=== PATIENT | male | born 1945 | race Caucasian/White ===

== ENCOUNTER → 2016-11-21 | Outpatient (CLI) | payer OTHER ==
[~2016-11-21] MED LIST: ASPI-461 PO; CETI10TA10 PO; LOSA1TAB38 PO; METF500T PO; MULTTAB58 PO; NXM/40 PO; OMEG1CAP71 PO; SIMV20TA5 PO
[2016-11-21 11:12] LABS: ESTIMATED AVERAGE GLUCOSE 163 mg/dl; HA1C FLAG Normal (Normal)
[2016-11-21 14:13] LABS: CALCIUM 9.6 mg/dl (8.5-10.1)
[2016-11-21 14:18] LABS: BLOOD UREA NITROGEN 20 mg/dl (7-18); GLUCOSE 135 mg/dl (70-99)
[2016-11-21 14:19] LABS: BUN/CREATININE RATIO 16.7 (10-20); CARBON DIOXIDE 30 mmol/L (21-32); CHLORIDE 106 mmol/L (98-107); POTASSIUM 4.7 mmol/L (3.5-5.1); SODIUM 140 mmol/L (136-145)
[2016-11-21 14:48] LABS: LYME DISEASE AB IGG NEG (NEG)
[2016-11-21 15:03] LABS: LYME DISEASE AB IGM NEG (NEG)
--- NOTE | 2016-12-04 13:39 | CODING QUERY MEDICAL NECESSITY ---
SUPPORTING DIAGNOSIS NEEDED Dr. Lyons, A supporting diagnosis is required for the test/procedure performed on this patient in order for us to be reimbursed by the patient's insurance. Please provide a supporting diagnosis for the following test/procedure listed below next to the test name along with your signature. *If there is no additional diagnosis for this patient that would support the following test/procedure please document that below next to the test/procedure. Test(s)/Procedure(s) that require a supporting diagnosis: * [id number] PSA DIAGNOSIS: DATE OF SERVICE: 11/21/16 Provider Signature: Date: Thank you Williams Monzon [facility] Information Management Once completed, please kindly fax back to [phone] For questions please call [phone]
== END | disposition home or self-care (01) ==
LOC: C.LABBC 09:06
PROVIDERS: ATTEND Internal Medicine Geriatric Medicine
DX: Z00.00 Encounter for general adult medical examination without abnormal findings (principal); E11.9 Type 2 diabetes mellitus without complications; G62.9 Polyneuropathy, unspecified; I10 Essential (primary) hypertension; G47.33 Obstructive sleep apnea (adult) (pediatric); T14.8 Other injury of unspecified body region; W57.XXXA Bitten or stung by nonvenomous insect and other nonvenomous arthropods, initial encounter; Z12.5 Encounter for screening for malignant neoplasm of prostate

== ENCOUNTER → 2017-04-30 | Outpatient (CLI) | payer OTHER ==
[~2017-04-30] MED LIST changes: +DOXY-300 PO; +LPT/20 PO; +METF1TAB53 PO; -METF500T PO; -SIMV20TA5 PO
[2017-04-30 13:46] LABS: CREATININE, URINE 70.2 mg/dl; URINE PROTIEN/CREAT RATIO 0.1 (0-0.2); URINE TOTAL PROTEIN 8.8 mg/dl (0-11.9)
[2017-04-30 13:48] LABS: BASO % 0.4 %; BASO ABS # 0.02 K/uL (0-0.2); COMPLETE YES; EOS % 1.4 %; HEMATOCRIT 42.1 % (42-52); IG% 0.2 %; LYMPH % 23.4 %; LYMPH ABS # 1.33 K/uL (1.2-3.4); MEAN CELL VOLUME 90.3 fL (80-100); MEAN CORPUSCULAR HEMOGLOBIN 30.7 pg (25-34); MEAN PLATELET VOLUME 9.5 fL (7.4-10.4); MONO % 8.1 %; NEUT % 66.5 %; PLATELET COUNT 206 K/uL (130-400); RED BLOOD COUNT 4.66 M/uL (4.7-6.1); WHITE BLOOD COUNT 5.69 K/uL (4.8-10.8)
[2017-04-30 14:00] LABS: ESTIMATED AVERAGE GLUCOSE 140 mg/dl; HA1C FLAG Normal (Normal)
[2017-04-30 14:04] LABS: ALT/SGPT 26 U/L (12-78); AST/SGOT 14 U/L (15-37); BLOOD UREA NITROGEN 18 mg/dl (7-18); CARBON DIOXIDE 31 mmol/L (21-32); CHLORIDE 103 mmol/L (98-107); CHOLESTEROL 125 mg/dl (0-200); CREATININE 1.21 mg/dl (0.60-1.40); GLUCOSE 129 mg/dl (70-99); POTASSIUM 4.1 mmol/L (3.5-5.1); SODIUM 137 mmol/L (136-145)
[2017-04-30 14:15] LABS: ALB/GLOB RATIO 1.1 (0.9-2); ALKALINE PHOSPHATASE 72 U/L (45-117); CHOLESTEROL/HDL RATIO 2.5; HDL CHOLESTEROL 51 mg/dl; LDL CHOLESTEROL CALCULATED 54 mg/dl; TRIGLYCERIDES 99 mg/dl (0-150); VERY LOW DENSITY LIPOPROT CALC 20 mg/dl
== END | disposition home or self-care (01) ==
LOC: C.LABBC 12:01
PROVIDERS: ATTEND Internal Medicine Geriatric Medicine
DX: I10 Essential (primary) hypertension (principal); G47.33 Obstructive sleep apnea (adult) (pediatric); E78.5 Hyperlipidemia, unspecified; Z68.38 Body mass index [BMI] 38.0-38.9, adult; G62.9 Polyneuropathy, unspecified; R80.9 Proteinuria, unspecified

== ENCOUNTER → 2017-08-22 | Outpatient (CLI) | payer OTHER ==
[~2017-08-22] MED LIST changes: -LPT/20 PO; +LPT20 PO
== END | disposition home or self-care (01) ==
LOC: C.PATHSPEC 18:03
PROVIDERS: ATTEND Plastic Surgery
DX: L72.0 Epidermal cyst (principal)

== ENCOUNTER 2020-05-07 17:21 | Observation (INO) ==
--- NOTE | 2020-05-07 18:06 | Emergency Department Note ---
Impression & Plan COVID-19 virus infection, SOB (shortness of breath), Fever, Hypoxia ED Provider Note INFORMANT: Patient ED PROVIDER(S): True Friedman MD CHIEF COMPLAINT: Shortness of breath PLAN: Disposition: Admitted Condition: Good MEDICAL DECISION MAKING: Patient presented with concerns for Covid infection. His test was pending from the [facility]. He had borderline O2 saturations during his physical of 90 to 91%. He had increased work of breathing. He does have multiple health issues. An ECG was performed and showed a sinus rhythm at 76 bpm. No ischemia. His CBC showed a mild decrease in his white blood cell count. He did have a positive D-dimer. His chemistry and troponin were negative. Patient underwent CT imaging and he has a bilateral pneumonia/pneumonitis. He was given IV Decadron. [facility] He did ask for a confirmation Covid test to be performed to help guide his inpatient treatment. This was done and was positive. The patient will benefit from inpatient treatment. During the subsequent evaluation by the hospitalist the patient's O2 saturation was noted to drop to 89%. Triage Nursing notes reviewed and agree them. Vital Signs: reviewed and remarkable for no significant abnormalities Differential diagnosis: COVID-19 infection, reactive airway disease, pneumonia, pneumothorax, COPD, CHF, infections, cardiac ischemia, pulmonary embolism, musculoskeletal, gastrointestinal, as well as other pathologies. Diagnostics interpreted by me: ECG: Sinus rhythm with a first-degree block at [address] elevation or depression. No PACs or PVCs. Normal axis and QRS. Cardiac Monitoring: Cardiac monitoring ordered by me: The patient was placed on continuous cardiac monitoring and observed. It revealed a normal sinus rhythm at 70 beats per minute without ectopy or evidence of dysrhythmia. Imaging studies: CT scan of the chest revealed no thromboembolic disease. Bilateral scattered patchy areas of inflammation concerning for a pneumonitis/multifocal pneumonia. Consultation(s): [facility] HPI: The patient is a 74 year old male who presents to the Emergency Room with complaints of shortness of breath. This started last week and is in progressing. Patient states he was tested for Covid but does not have the results back yet. He does not have any known exposures. The patient also notes the following associated symptoms, fever, fatigue, low energy, cough. The patient has found no relieving factors. Current pain is rated as 0/10. pt denies LOC, headache, chills, diaphoresis, visual changes, neck pain, chest pain, nausea, vomiting, abdominal pain, back pain, melena, hematochezia, urinary symptoms, numbness, weakness, lymphadenopathy, rash, or other complaints. ROS: See above HPI for pertinent positives & negatives. A total of 10 systems reviewed and were otherwise negative. PAST MEDICAL HISTORY:See Below, hypertension, diabetes PAST SURGICAL HISTORY:See Below, FAMILY HISTORY:See Below SOCIAL HISTORY:See Below, non-smoker HOME MEDICATIONS:See Below ALLERGIES:See Below VITALS:See Below PHYSICAL EXAMINATION: GENERAL: Awake, alert, mildly dyspneic-appearing, in no distress HENT: Normocephalic, atraumatic. Oropharynx unremarkable. EYES: Normal conjunctiva. Sclera non-icteric. NECK: Inspection normal. Non-tender. Supple. No nuchal rigidity. FROM. No masses. RESPIRATORY: Clear to auscultation. No wheezes. No rales. Increased respiratory effort. CARDIAC: Normal rate. Normal rhythm. No murmurs. No rubs. Extremities warm and well perfused. Pulses equal. No JVD. GI: Soft, non-distended. No tenderness to palpation. No rebound or guarding. No masses. RECTAL: Deferred. MUSCULOSKELETAL: Atraumatic. Chest examination reveals no tenderness. The back is symmetrical on inspection without obvious abnormality. There is no CVA tenderness to palpation. No joint edema. LOWER EXTREMITIES: Calves are equal size bilaterally and non-tender. No edema. No discoloration. NEURO: Normal sensorium. No sensory or motor deficits noted. SKIN: No rash or jaundice noted. True Friedman MD Past Med/Surg History Medical History (Updated 05/07/20 @ 22:30 by True Friedman MD) Anemia pt denies. Barretts esophagus Diabetes mellitus, type 2 NIDDM Dyslipidemia Esophageal candidiasis hx - no problems currently GERD (gastroesophageal reflux disease) Hyperlipidemia Hypertension Numbness left hip, front and back (from a sledding accident as a child) Obstructive sleep apnea CPAP Osteoarthritis Peripheral neuropathy bilateral feet Sleep apnea cpap Tubular adenoma of colon Surgical History H/O removal of cyst sebaceous cyst History of colonoscopy 2004- 2 polyp removed. 2014- polyps (benign) removed. History of esophagogastroduodenoscopy (EGD) History of surgery removal of benign testicular growth History of tooth extraction Family History Mother , from cancer Family history of diabetes mellitus Family member Father , at age 79 Family history of diabetes mellitus Heart disease Cardiac disorder Family member Family/Other Family history of diabetes mellitus cousins Zhu esophagus Skin cancer (melanoma) Renal cell carcinoma Uncle Family hx of colon cancer Cancer Colon cancer Grandmother (Maternal) Glaucoma Aunt Cancer Grandfather (Paternal) Myocardial infarction Brother Prostate cancer Other No family history of adverse response to anesthesia Denies family history of Ovarian cancer Breast cancer Social History Smoking Status: Never smoker Second Hand Exposure: No; Hx Alcohol Use: Yes Alcohol type: wine Hx Substance Use: No Preferred Language: Polish Communication Ability: Effective Visual Impairment: No Limitations Hearing Ability: Normal Brilliandeer Looper Required: No Beliefs That Will Affect Care: None marital status: Current Living Situation: Spouse current occupational status: retired Feels Safe at Home: Yes Childhood Exposure to Second-Hand Smoke: No Dental Care, Regularly: Yes Physical Activity Frequency: 3-4 Times per Week Seatbelt Use: always Sunscreen Use: Yes Assistive Devices: CPAP, Denture - Upper, Denture - Lower and Glasses Allergies Allergies Allergy/AdvReac Type Severity Reaction Status Date / Time No Known Allergies Allergy Verified 05/07/20 20:57 Home Meds Home Medications Medication Instructions Recorded Confirmed aspirin 81 mg PO Q2D 06/30/18 05/07/20 cetirizine [Zyrtec] 10 mg PO DAILY PRN 06/30/18 05/07/20 cholecalciferol (vitamin D3) 1,000 unit PO QAM 06/30/18 05/07/20 [Vitamin D3] cyanocobalamin (vitamin B-12) 1,000 mcg PO QAM 06/30/18 05/07/20 [Vitamin B-12] multivitamin 1 tab PO QAM 06/30/18 05/07/20 pseudoephedrine HCl [Sudafed] 30 mg PO Q6H PRN 06/30/18 05/07/20 atorvastatin 20 mg PO QPM 02/02/20 05/07/20 fish,bora,flax oils-om3,6,9no1 2 cap PO QAM 02/02/20 05/07/20 [[place] 3-6-9 Complex] Previous Rx's Medication Instructions Recorded losartan 100 mg tablet 100 mg PO QAM #90 tab 07/20/19 metformin 500 mg tablet,extended 1,000 mg PO BID #360 tab 08/19/19 release 24 hr esomeprazole magnesium 40 mg 40 mg PO QAM #90 cap 11/16/19 capsule,delayed release doxazosin 2 mg tablet 2 mg PO QAM #90 tab 03/25/20 Results & Data (ED) Vital Signs Vital Signs - 24 hr 05/07/20 17:23 05/07/20 19:30 05/07/20 20:30 Temperature 37.3 C Temperature Source Temporal Artery Scan Pulse Rate 78 70 Pulse Rate from SpO2 Sensor 70 Respiratory Rate 19 22 Respiratory Effort / Characteristics Non-Labored Respiratory Depth Normal Blood Pressure 148/84 H 159/85 H Blood Pressure Mean 105 117 Blood Pressure Position Sitting Pulse Oximetry 92 93 89 L Oxygen Delivery Method Room Air Room Air Sepsis Recent Fever Within 48 Hours Yes Sepsis New/Unexplained Change in Mental Status No Sepsis Action Taken by Nursing No Action Required Laboratory Data Result diagrams: 05/07/20 18:00 05/07/20 18:00 Lab Results 05/07/20 05/07/20 05/07/20 Range/Units 18:00 18:00 18:00 WBC 4.25 L (4.8-10.8) K/uL RBC 4.25 L (4.7-6.1) M/uL Hgb 12.7 L (14.0-18.0) g/dL Hct 36.7 L (42-52) % MCV 86.4 (80-100) fL MCH 29.9 (25-34) pg MCHC 34.6 (32-36) g/dL RDW Std Deviation 41.6 (36.4-46.3) fL RDW Coeff of Chandler 13.1 (11.5-14.5) % Plt Count 163 (130-400) K/uL MPV 9.5 (7.4-10.4) fL Immature Gran % (Auto) 0.2 % Neut % (Auto) 79.9 % Lymph % (Auto) 14.1 % Cross % (Auto) 5.4 % Eos % (Auto) 0.2 % Baso % (Auto) 0.2 % Neut # (Auto) 3.39 (1.4-6.5) K/uL Lymph # (Auto) 0.60 L (1.2-3.4) K/uL Cross # (Auto) 0.23 (0.11-0.59) K/uL Eos # (Auto) 0.01 (0-0.5) K/uL Baso # (Auto) 0.01 (0-0.2) K/uL Immature Gran # (Auto) 0.01 (0.00-0.02) K/uL PT 11.6 (9.0-12.0) Seconds INR 1.1 (0.9-1.1) D-Dimer 540 H* (0-500) ug/L FEU Sodium 131 L (136-145) mmol/L Potassium 3.7 (3.5-5.1) mmol/L Chloride 99 (98-107) mmol/L Carbon Dioxide 27 (21-32) mmol/L Anion Gap 5.0 (3-11) BUN 20 H (7-18) mg/dl Creatinine 0.99 (0.6-1.4) mg/dl Est Cr Clr Drug Dosing 86.5 ml/min Est GFR ( Amer) 87.8 Est GFR (Non-Af Amer) 75.8 BUN/Creatinine Ratio 20.0 (10-20) Glucose 135 H (70-99) mg/dl Calcium 8.1 L (8.5-10.1) mg/dl Total Bilirubin 0.7 (0.2-1) mg/dl AST 20 (15-37) U/L ALT 21 (12-78) U/L Alkaline Phosphatase 71 (45-117) U/L Troponin I < 0.015 (0-0.045) ng/ml Total Protein 7.0 (6.4-8.2) gm/dl Albumin 3.3 L (3.4-5.0) gm/dl Globulin 3.7 (2.5-4.0) gm/dl Albumin/Globulin Ratio 0.9 (0.9-2) COVID-19 Eval Order SARS-CoV-2, RNA, NAAT (NEGATIVE) Blood Type Antibody Screen 05/07/20 05/07/20 05/07/20 Range/Units 18:22 20:37 20:37 WBC (4.8-10.8) K/uL RBC (4.7-6.1) M/uL Hgb (14.0-18.0) g/dL Hct (42-52) % MCV (80-100) fL MCH (25-34) pg MCHC (32-36) g/dL RDW Std Deviation (36.4-46.3) fL RDW Coeff of Chandler (11.5-14.5) % Plt Count (130-400) K/uL MPV (7.4-10.4) fL Immature Gran % (Auto) % Neut % (Auto) % Lymph % (Auto) % Cross % (Auto) % Eos % (Auto) % Baso % (Auto) % Neut # (Auto) (1.4-6.5) K/uL Lymph # (Auto) (1.2-3.4) K/uL Cross # (Auto) (0.11-0.59) K/uL Eos # (Auto) (0-0.5) K/uL Baso # (Auto) (0-0.2) K/uL Immature Gran # (Auto) (0.00-0.02) K/uL PT (9.0-12.0) Seconds INR (0.9-1.1) D-Dimer (0-500) ug/L FEU Sodium (136-145) mmol/L Potassium (3.5-5.1) mmol/L Chloride (98-107) mmol/L Carbon Dioxide (21-32) mmol/L Anion Gap (3-11) BUN (7-18) mg/dl Creatinine (0.6-1.4) mg/dl Est Cr Clr Drug Dosing ml/min Est GFR ( Amer) Est GFR (Non-Af Amer) BUN/Creatinine Ratio (10-20) Glucose (70-99) mg/dl Calcium (8.5-10.1) mg/dl Total Bilirubin (0.2-1) mg/dl AST (15-37) U/L ALT (12-78) U/L Alkaline Phosphatase (45-117) U/L Troponin I (0-0.045) ng/ml Total Protein (6.4-8.2) gm/dl Albumin (3.4-5.0) gm/dl Globulin (2.5-4.0) gm/dl Albumin/Globulin Ratio (0.9-2) COVID-19 Eval Order Covid19 [facility]Now [facility] SARS-CoV-2, RNA, NAAT POSITIVE A* (NEGATIVE) Blood Type A Negative Antibody Screen NEGATIVE Administered Medications Discontinued Medications Dexamethasone (Dexamethasone Sod Inj 10 Mg/Ml Vial) 6 mg IV NOW ONE Stop: 05/07/20 20:12 Last Admin: 05/07/20 20:35 Dose: 6 mg Documented by: [id number] Ioversol (Optiray 320 125ml) 118 ml IV ONCE ONE Stop: 05/07/20 19:25 Last Admin: 05/07/20 19:24 Dose: 118 ml Documented by: [id number] Discharge Plan Visit Data Chief Complaint: Fever Stated Complaint: FEVER, COUGH ED Provider: True Friedman Discharge Problem: COVID-19 virus infection, SOB (shortness of breath), Fever, Hypoxia Forms Stand Alone Forms: [facility] Prescriptions Prescriptions: No Action metformin [Glucophage XR] 500 mg tablet extended release 24 hr 1,000 mg PO BID Qty: 360 RF: 3 esomeprazole magnesium 40 mg capsule,delayed release(DR/EC) 40 mg PO QAM Qty: 90 RF: 3 doxazosin 2 mg tablet 2 mg PO QAM Qty: 90 RF: 1 losartan 100 mg tablet 100 mg PO QAM Qty: 90 RF: 3 multivitamin Tablet 1 tab PO QAM RF: 0 cetirizine [Zyrtec] 10 mg Tablet 10 mg PO DAILY PRN (Reason: Allergy Symptoms) RF: 0 cyanocobalamin (vitamin B-12) [Vitamin B-12] 1,000 mcg Tablet 1,000 mcg PO QAM RF: 0 aspirin 81 mg Tablet,Delayed Release (Dr/Ec) 81 mg PO Q2D RF: 0 pseudoephedrine HCl [Sudafed] 30 mg Tablet 30 mg PO Q6H PRN (Reason: Cold Symptoms) RF: 0 cholecalciferol (vitamin D3) [Vitamin D3] 1,000 unit Capsule 1,000 unit PO QAM RF: 0 fish,bora,flax oils-om3,6,9no1 [[place] 3-6-9 Complex] 400-400-400 mg Capsule 2 cap PO QAM RF: 0 atorvastatin 20 mg tablet 20 mg PO QPM RF: 0
[2020-05-07 18:36] LABS: Basophils # (auto) 0.01 K/uL (0-0.2); Basophils % (auto) 0.2 %; Eosinophils # (auto) 0.01 K/uL (0-0.5); Eosinophils % (auto) 0.2 %; Hematocrit (blood only) 36.7 % (42-52); Hemoglobin 12.7 g/dL (14.0-18.0); Immature Granulocytes # (auto) 0.01 K/uL (0.00-0.02); Immature Granulocytes % (auto) 0.2 %; Lymphocytes % (auto) 14.1 %; Mean Corpuscular Hemoglobin 29.9 pg (25-34); Mean Corpuscular Hgb Conc 34.6 g/dL (32-36); Mean Corpuscular Volume 86.4 fL (80-100); Mean Platelet Volume 9.5 fL (7.4-10.4); Monocytes # (auto) 0.23 K/uL (0.11-0.59); Monocytes % (auto) 5.4 %; Neutrophils # (auto) 3.39 K/uL (1.4-6.5); Neutrophils % (auto) 79.9 %; Platelet Count 163 K/uL (130-400); RDW Coefficient of Variation 13.1 % (11.5-14.5); RDW Standard Deviation 41.6 fL (36.4-46.3); Red Blood Count 4.25 M/uL (4.7-6.1); White Blood Count 4.25 K/uL (4.8-10.8)
[2020-05-07 18:46] LABS: INR 1.1 (0.9-1.1); Prothrombin Time 11.6 Seconds (9.0-12.0)
[2020-05-07 18:53] LABS: D Dimer 540 ug/L FEU (0-500)
[2020-05-07 18:55] LABS: Alanine Aminotransferase 21 U/L (12-78); Albumin Level 3.3 gm/dl (3.4-5.0); Aspartate Aminotransferase 20 U/L (15-37); Blood Urea Nitrogen 20 mg/dl (7-18); Calcium 8.1 mg/dl (8.5-10.1); Carbon Dioxide 27 mmol/L (21-32); Chloride 99 mmol/L (98-107); Creatinine Clr Calc Pharmacy 86.5 ml/min; Est GFR (African American) 87.8; Est GFR (Non-African American) 75.8; Glucose 135 mg/dl (70-99); Potassium 3.7 mmol/L (3.5-5.1); Sodium 131 mmol/L (136-145)
[2020-05-07 19:00] LABS: Albumin Globulin Ratio 0.9 (0.9-2); Alkaline Phosphatase 71 U/L (45-117); Bilirubin,Total 0.7 mg/dl (0.2-1); Globulin 3.7 gm/dl (2.5-4.0); Troponin I < 0.015 ng/ml (0-0.045)
[2020-05-07] MEDS ORDERED: OPTIRAY 320 125ml IV ONE (19:24)
--- NOTE | 2020-05-07 19:36 | CT Scan Report ---
CT ANGIOGRAM OF THE CHEST CLINICAL HISTORY: Fever. Dyspnea. Cough. COMPARISON STUDY: No priors. TECHNIQUE: Following the IV administration of 118 cc of Optiray 320, CT angiogram of the chest was pe rformed from the upper abdomen to the thoracic inlet utilizing the pulmonary embolus protocol. Images are reviewed in the axial, sagittal, and coronal planes. 3-D MIPS images are created and assessed. I V contrast was administered without complication. A dose lowering technique was utilized adhering to the principles of ALARA. CT DOSE: 792.14 mGy.cm FINDINGS: Thyroid: Imaged portions of the thyroid gland are normal in size and attenuation. Thoracic aorta: The thoracic aorta is normal in caliber and demonstrates standard 3-vessel arch anato my. No dissection is seen. Pulmonary vasculature: The pulmonary trunk is normal in caliber. There are no filling defects within the main, lobar, or segmental pulmonary arteries to suggest pulmonary embolus. Heart: The heart is enlarged and without pericardial effusion. There are coronary artery calcificatio ns. Lungs and pleural spaces: Evaluation of the lung parenchyma is degraded by motion artifact. There is mild multifocal groundglass consolidation seen throughout both lungs with a predominant a subpleural distribution. No pleural effusion is seen. The trachea and central airways are clear. A 5 mm right lo wer lobe pulmonary nodule is seen on image #122. A 2 mm right upper lobe pulmonary nodule is seen on image #161. Mediastinum: There are scattered subcentimeter mediastinal lymph nodes. Bridget: Clear. Axillae: There is no axillary lymphadenopathy. Upper abdomen: There is a small hiatal hernia. Partially visualized upper abdominal viscera is otherw ise within normal limits. Skeletal structures: The skeletal structures are osteopenic. No lytic or blastic bony lesions are see n. Soft tissues: A 12 mm sebaceous cyst is seen within the left anterior chest wall on image #206. IMPRESSION: 1. There is no evidence of pulmonary embolus in the main, lobar, or segmental pulmonary arteries. 2. There is mild multifocal groundglass consolidation seen throughout both lungs, consistent with an infectious/inflammatory pneumonitis. Clinical correlation will be required and radiographic follow-up to resolution is recommended. 3. Cardiomegaly. 4. There are least 2 pulmonary nodules which measure up to 5 mm. These are pathologically indetermina nt and follow-up is recommended as per the Fleischner criteria below. Please refer to below summary of Fleischner criteria recommendations for follow-up of incidental CT n odules (Jessica Martinez, Guidelines for management of small pulmonary nodules detected on CT scans: A elvin tamayo from the Fleischner Society, Radiology 237: [phone].) SOLID NODULES Solitary nodule size: <6 mm * low risk patients: no follow-up needed * high risk patients: optional CT at 12 months Solitary nodule size: 6-8 mm * low risk patients: follow-up at 6-12 months, then consider further follow-up at 18-24 months * high risk patients: initial follow-up CT at 6-12 months and then at 18-24 months if no change Solitary nodule size: >8 mm * either low or high risk patients - consider follow-up CT at 3 months, and/or CT-PET, and/or biopsy Multiple nodules size: <6 mm * low risk patients: no routine follow-up * high risk patients: optional CT at 12 months Multiple nodules size: 6-8 mm * low risk patients: follow-up at 3-6 months, then consider further follow-up at 18-24 months * high risk patients: follow-up at 3-6 months, then at 18-24 months if no change Multiple nodules size: >8 mm * low risk patients: follow-up at 3-6 months, then consider further follow-up at 18-24 months * high risk patients: follow-up at 3-6 months, then at 18-24 months if no change Note: newly detected indeterminate nodule in persons 35 years of age or older. * low risk patients: minimal or absent history of smoking and/or other known risk factors * high risk patients: history of smoking or of other known risk factors (e.g. first degree relative with lung cancer, or exposure to asbestos, radon, uranium) * if a nodule up to 8 mm is partly solid or is ground glass further follow-up is required after 24 m onths to exclude possible slow growing adenocarcinoma (CRISTINA) SUBSOLID NODULES Solitary pure ground-glass nodule * nodule size <6 mm - no CT follow-up required * nodule size >=6 mm - follow-up CT at 6-12 months, then every 2 years until 5 years Solitary part-solid nodule * nodule size <6 mm - no CT follow-up required * nodule size >=6 mm - follow-up CT at 3-6 months. If unchanged, and solid component remains <6 mm, then annual follow-up for 5 years Multiple subsolid nodules * nodule size <6 mm - follow-up CT at 3-6 months, consider further follow-up at 2 and 4 years if sta ble * nodule size >=6 mm - follow-up CT at 3-6 months, subsequent management based on the most suspiciou s nodule(s) ACT 112: Negative or not required by law. Electronically signed by: Michael Shah M.D. 05/07/2020 7:34 PM
[2020-05-07] MEDS ORDERED: DEXAMETHASONE SOD INJ 10 MG/ML VIAL IV ONE (20:11)
--- NOTE | 2020-05-07 22:43 | History & Physical Report ---
Date of Service May 07, 2020 Assessment & Plan (1) COVID-19 virus infection: COVID-19 virus infection with hypoxia- Dexamethasone 6 mg IV every morning Remdesivir IV per protocol Azithromycin 5 mg IV daily Zinc sulfate turn 20 mg p.o. daily Ventolin HFA 2 puffs 4 times daily, and every 2 hours as needed Lovenox subcu Present on Admission?: Yes (2) Hypoxia: See above Present on Admission?: Yes (3) Vitamin B12 deficiency: Continue supplement 1000 mcg every morning Present on Admission?: Yes (4) Gastroesophageal reflux disease: GERD/Zhu's esophagus- Change Nexium to pantoprazole per formulary interchange Present on Admission?: Yes (5) Zhu's esophagus: See above Present on Admission?: Yes (6) Hypertension: Continue aspirin, doxazosin and losartan. Present on Admission?: Yes (7) Type 2 diabetes mellitus: Hold metformin. Placed on Accu-Cheks before meals and at bedtime with NovoLog coverage per scale Present on Admission?: Yes (8) Dyslipidemia: Continue atorvastatin 20 mg daily Present on Admission?: Yes (9) Obstructive sleep apnea: CPAP at bedtime as needed Present on Admission?: Yes (10) Peripheral neuropathy: History of Present Illness Chief Complaint: The patient presented to the emergency department with complaint of increased difficulty with breathing over the past few days, with a pending COVID-19 testing in the outpatient setting Primary Care Provider: Dennis Frausto MD The patient is a 74-year-old male with a past medical history including colon polyps, Zhu's esophagus, vitamin B12 deficiency, seborrheic keratosis, multiple benign nevi, hypertension, GERD, diabetes mellitus type 2, dermatofibroma, powell angioma, anemia, dyslipidemia, esophageal candidiasis, obstructive sleep apnea, peripheral neuropathy and tubular adenoma of colon. Patient presents with symptoms as noted above. Work-up in the emergency department included the following abnormal laboratories: Sodium 131, glucose 135, albumin 3.3, hemoglobin 12.7, D-dimer 540 Patient vitals included a room air oxygen saturation of 89% CT angiography PE protocol was negative for PE. Did show bilateral interstitial pneumonitis pattern. COVID-19 virus testing was positive. Allergies Allergy/AdvReac Type Severity Reaction Status Date / Time No Known Allergies Allergy Verified 05/07/20 20:57 Home Medications Medication Instructions Recorded Confirmed Type aspirin 81 mg PO Q2D 06/30/18 05/07/20 History cetirizine [Zyrtec] 10 mg PO DAILY PRN 06/30/18 05/07/20 History cholecalciferol (vitamin D3) 1,000 unit PO QAM 06/30/18 05/07/20 History [Vitamin D3] cyanocobalamin (vitamin B-12) 1,000 mcg PO QAM 06/30/18 05/07/20 History [Vitamin B-12] multivitamin 1 tab PO QAM 06/30/18 05/07/20 History pseudoephedrine HCl [Sudafed] 30 mg PO Q6H PRN 06/30/18 05/07/20 History losartan 100 mg tablet 100 mg PO QAM #90 tab 07/20/19 05/07/20 Rx metformin 500 mg tablet,extended 1,000 mg PO BID #360 tab 08/19/19 05/07/20 Rx release 24 hr esomeprazole magnesium 40 mg 40 mg PO QAM #90 cap 11/16/19 05/07/20 Rx capsule,delayed release atorvastatin 20 mg PO QPM 02/02/20 05/07/20 History fish,bora,flax oils-om3,6,9no1 2 cap PO QAM 02/02/20 05/07/20 History [[place] 3-6-9 Complex] doxazosin 2 mg tablet 2 mg PO QAM #90 tab 03/25/20 05/07/20 Rx Past Med/Surg History Medical History (Updated 05/07/20 @ 22:30 by True Friedman MD) Anemia pt denies. Barretts esophagus Diabetes mellitus, type 2 NIDDM Dyslipidemia Esophageal candidiasis hx - no problems currently GERD (gastroesophageal reflux disease) Hyperlipidemia Hypertension Numbness left hip, front and back (from a sledding accident as a child) Obstructive sleep apnea CPAP Osteoarthritis Peripheral neuropathy bilateral feet Sleep apnea cpap Tubular adenoma of colon Surgical History H/O removal of cyst sebaceous cyst History of colonoscopy 2004- 2 polyp removed. 2014- polyps (benign) removed. History of esophagogastroduodenoscopy (EGD) History of surgery removal of benign testicular growth History of tooth extraction Family History Mother , from cancer Family history of diabetes mellitus Family member Father , at age 79 Family history of diabetes mellitus Heart disease Cardiac disorder Family member Family/Other Family history of diabetes mellitus cousins Zhu esophagus Skin cancer (melanoma) Renal cell carcinoma Uncle Family hx of colon cancer Cancer Colon cancer Grandmother (Maternal) Glaucoma Aunt Cancer Grandfather (Paternal) Myocardial infarction Brother Prostate cancer Other No family history of adverse response to anesthesia Denies family history of Ovarian cancer Breast cancer Social History Smoking Status: Never smoker Second Hand Exposure: No; Hx Alcohol Use: Yes Alcohol type: wine Hx Substance Use: No Preferred Language: Congolese Communication Ability: Effective Visual Impairment: No Limitations Hearing Ability: Normal Automatic Head Sawyer Required: No Beliefs That Will Affect Care: None marital status: Current Living Situation: Spouse current occupational status: retired Other Information That Helps Us Care for You: No Feels Safe at Home: Yes Safety Concerns: Feels Safe At This Time Childhood Exposure to Second-Hand Smoke: No Dental Care, Regularly: Yes Physical Activity Frequency: 3-4 Times per Week Seatbelt Use: always Sunscreen Use: Yes Assistive Devices: CPAP, Denture - Upper, Denture - Lower and Glasses Review of Systems Review of Systems: The patient denies chest pain, palpitations, lower extremity swelling, sore throat, fevers, chills, sweats, nausea, vomiting, diarrhea , constipation, abdominal pain, pelvic pain, blood in urine or stool, dysuria, urinary frequency or urgency, lightheadedness, dizziness, headache, memory loss, loss of consciousness, rash, abnormal bruising or bleeding, imbalance, focal weakness, numbness or tingling in arms or legs, generalized arthralgias or myalgias, back or neck pain, or night sweats. The review of systems is otherwise negative other than for that already noted above, and at least 10 systems have been reviewed. Physical Exam Physical Exam: The patient is awake, alert and oriented 3, well developed and well nourished, normocephalic and atraumatic, lying in bed and in no acute distress. HEENT--PERRL, EOMI, mucous membranes and oropharynx normal. Neck--supple. No JVD. No bruits. Thyroid normal, trachea midline, no adenopathy. Heart--normal S1 and S2. No murmurs, rubs or gallops. Lungs--coarse breath sounds bilaterally. No respiratory distress, no accessory muscle use. Abdomen--normal bowel sounds and soft. Nontender. Nondistended. Obese. Extremities--no cyanosis or clubbing. No edema. Dermatologic--normal skin turgor, normal color, no abnormal lymph nodes, no rash. Neurologic--cranial nerves II through XII grossly intact. Rheumatologic--normal range of motion. Psychiatric--normal affect. Results & Data Results & Data ([facility]) Vital Signs (Past 12 Hours) Vital Signs Temp Pulse Resp BP Pulse Ox 05/07/20 20:30 89 L 05/07/20 19:30 70 22 159/85 H 93 05/07/20 17:23 99.1 F 78 19 148/84 H 92 Laboratory Results Laboratory Results WBC 4.25 K/uL (4.8-10.8) L 05/07/20 18:00 RBC 4.25 M/uL (4.7-6.1) L 05/07/20 18:00 Hgb 12.7 g/dL (14.0-18.0) L 05/07/20 18:00 Hct 36.7 % (42-52) L 05/07/20 18:00 MCV 86.4 fL (80-100) 05/07/20 18:00 MCH 29.9 pg (25-34) 05/07/20 18:00 MCHC 34.6 g/dL (32-36) 05/07/20 18:00 RDW Std Deviation 41.6 fL (36.4-46.3) 05/07/20 18:00 RDW Coeff of [place] 13.1 % (11.5-14.5) 05/07/20 18:00 Plt Count 163 K/uL (130-400) 05/07/20 18:00 MPV 9.5 fL (7.4-10.4) 05/07/20 18:00 Immature Gran % (Auto) 0.2 % 05/07/20 18:00 Neut % (Auto) 79.9 % 05/07/20 18:00 Lymph % (Auto) 14.1 % 05/07/20 18:00 [place] % (Auto) 5.4 % 05/07/20 18:00 Eos % (Auto) 0.2 % 05/07/20 18:00 Baso % (Auto) 0.2 % 05/07/20 18:00 Neut # (Auto) 3.39 K/uL (1.4-6.5) 05/07/20 18:00 Lymph # (Auto) 0.60 K/uL (1.2-3.4) L 05/07/20 18:00 [place] # (Auto) 0.23 K/uL (0.11-0.59) 05/07/20 18:00 Eos # (Auto) 0.01 K/uL (0-0.5) 05/07/20 18:00 Baso # (Auto) 0.01 K/uL (0-0.2) 05/07/20 18:00 Immature Gran # (Auto) 0.01 K/uL (0.00-0.02) 05/07/20 18:00 PT 11.6 Seconds (9.0-12.0) 05/07/20 18:00 INR 1.1 (0.9-1.1) 05/07/20 18:00 D-Dimer 540 ug/L FEU (0-500) H* 05/07/20 18:00 Sodium 131 mmol/L (136-145) L 05/07/20 18:00 Potassium 3.7 mmol/L (3.5-5.1) 05/07/20 18:00 Chloride 99 mmol/L (98-107) 05/07/20 18:00 Carbon Dioxide 27 mmol/L (21-32) 05/07/20 18:00 Anion Gap 5.0 (3-11) 05/07/20 18:00 BUN 20 mg/dl (7-18) H 05/07/20 18:00 Creatinine 0.99 mg/dl (0.6-1.4) 05/07/20 18:00 Est Cr Clr Drug Dosing 86.5 ml/min 05/07/20 18:00 Est GFR ( Amer) 87.8 05/07/20 18:00 Est GFR (Non-Af Amer) 75.8 05/07/20 18:00 BUN/Creatinine Ratio 20.0 (10-20) 05/07/20 18:00 Glucose 135 mg/dl (70-99) H 05/07/20 18:00 POC Glucose 194 mg/dl (70-99) H 05/08/20 00:46 Calcium 8.1 mg/dl (8.5-10.1) L 05/07/20 18:00 Total Bilirubin 0.7 mg/dl (0.2-1) 05/07/20 18:00 AST 20 U/L (15-37) 05/07/20 18:00 ALT 21 U/L (12-78) 05/07/20 18:00 Alkaline Phosphatase 71 U/L (45-117) 05/07/20 18:00 Troponin I < 0.015 ng/ml (0-0.045) 05/07/20 18:00 Total Protein 7.0 gm/dl (6.4-8.2) 05/07/20 18:00 Albumin 3.3 gm/dl (3.4-5.0) L 05/07/20 18:00 Globulin 3.7 gm/dl (2.5-4.0) 05/07/20 18:00 Albumin/Globulin Ratio 0.9 (0.9-2) 05/07/20 18:00 Urine Color Yellow 05/08/20 01:00 Urine Appearance Clear (Clear) 05/08/20 01:00 Urine pH 5.0 (4.5-7.5) 05/08/20 01:00 Ur Specific [place] > 1.045 (1.000-1.030) H 05/08/20 01:00 Urine Protein 3+ (Negative) H 05/08/20 01:00 Urine Glucose (UA) Trace (Negative) H 05/08/20 01:00 Urine Ketones 2+ (Negative) H 05/08/20 01:00 Urine Blood 1+ (Negative) H 05/08/20 01:00 Urine Nitrite Negative (Negative) 05/08/20 01:00 Urine Bilirubin Negative (Negative) 05/08/20 01:00 Urine Urobilinogen Negative (Negative) 05/08/20 01:00 Ur Leukocyte Esterase Negative (Negative) 05/08/20 01:00 Urine WBC (Auto) 1-5 /hpf (0-5) 05/08/20 01:00 Urine RBC (Auto) 5-10 /hpf (0-4) H 05/08/20 01:00 U Hyaline Cast (Auto) 0 /lpf (0-5) 05/08/20 01:00 U Epithel Cells (Auto) 5-10 /lpf (0-5) H 05/08/20 01:00 Urine Bacteria (Auto) Negative (Negative) 05/08/20 01:00 COVID-19 Eval Order Covid19 [facility]Now [facility] 05/07/20 20:37 SARS-CoV-2, RNA, NAAT POSITIVE (NEGATIVE) A* 05/07/20 20:37 Blood Type A Negative 05/07/20 18:22 Antibody Screen NEGATIVE 05/07/20 18:22 Diagnostic Findings [facility], [id number] CT Scan Report Patient: JESSICA WATTERS Date: 05/07/20MR#: [id number] TRADITION DRAcct ID:[id number]: Date: 1945[facility] Zip: [place], [place] [address]Qrw: 74Location: EDSex: MRoom/Bed:Att Phy:Diagnosis: FEVER, COUGHPri Phy: Dennis Frausto MDServanibal Date: 05/07/20Fa Phy:Interpreting Phy: Michael Shah [facility] Phy: Ordering Phy: True Friedman MD cc: ~ CT ANGIOGRAM OF THE CHEST CLINICAL HISTORY: Fever. Dyspnea. Cough. COMPARISON STUDY: No priors. TECHNIQUE: Following the IV administration of 118 cc of Optiray 320, CT angiogram of the chest was performed from the upper abdomen to the thoracic inlet utilizing the pulmonary embolus protocol. Images are reviewed in the axial, sagittal, and coronal planes. 3-D MIPS images are created and assessed. IV contrast was administered without complication. A dose lowering technique was utilized adhering to the principles of ALARA. CT DOSE: 792.14 mGy.cm FINDINGS: Thyroid: Imaged portions of the thyroid gland are normal in size and attenuation. Thoracic aorta: The thoracic aorta is normal in caliber and demonstrates standard 3-vessel arch anatomy. No dissection is seen. Pulmonary vasculature: The pulmonary trunk is normal in caliber. There are no filling defects within the main, lobar, or segmental pulmonary arteries to suggest pulmonary embolus. Heart: The heart is enlarged and without pericardial effusion. There are coronary artery calcifications. Lungs and pleural spaces: Evaluation of the lung parenchyma is degraded by motion artifact. There is mild multifocal groundglass consolidation seen throughout both lungs with a predominant a subpleural distribution. No pleural effusion is seen. The trachea and central airways are clear. A 5 mm right lower lobe pulmonary nodule is seen on image #122. A 2 mm right upper lobe pulmonary nodule is seen on image #161. Mediastinum: There are scattered subcentimeter mediastinal lymph nodes. Bridget: Clear. Axillae: There is no axillary lymphadenopathy. Upper abdomen: There is a small hiatal hernia. Partially visualized upper abdominal viscera is otherwise within normal limits. Skeletal structures: The skeletal structures are osteopenic. No lytic or blastic bony lesions are seen. Soft tissues: A 12 mm sebaceous cyst is seen within the left anterior chest wall on image #206. IMPRESSION: 1. There is no evidence of pulmonary embolus in the main, lobar, or segmental pulmonary arteries. 2. There is mild multifocal groundglass consolidation seen throughout both lungs, consistent with an infectious/inflammatory pneumonitis. Clinical correlation will be required and radiographic follow-up to resolution is recommended. 3. Cardiomegaly. 4. There are least 2 pulmonary nodules which measure up to 5 mm. These are pat hologically indeterminant and follow-up is recommended as per the Fleischner criteria below. Please refer to below summary of Fleischner criteria recommendations for follow- up of incidental CT nodules (Jessica Martinez, Guidelines for management of small pulmonary nodules detected on CT scans: A statement from the Fleischner Society, Radiology 237: [phone].) SOLID NODULES Solitary nodule size: <6 mm * low risk patients: no follow-up needed * high risk patients: optional CT at 12 months Solitary nodule size: 6-8 mm * low risk patients: follow-up at 6-12 months, then consider further follow-up at 18-24 months * high risk patients: initial follow-up CT at 6-12 months and then at 18-24 months if no change Solitary nodule size: >8 mm * either low or high risk patients - consider follow-up CT at 3 months, and/or CT-PET, and/or biopsy Multiple nodules size: <6 mm * low risk patients: no routine follow-up * high risk patients: optional CT at 12 months Multiple nodules size: 6-8 mm * low risk patients: follow-up at 3-6 months, then consider further follow-up at 18-24 months * high risk patients: follow-up at 3-6 months, then at 18-24 months if no change Multiple nodules size: >8 mm * low risk patients: follow-up at 3-6 months, then consider further follow-up at 18-24 months * high risk patients: follow-up at 3-6 months, then at 18-24 months if no dae nge Note: newly detected indeterminate nodule in persons 35 years of age or older. * low risk patients: minimal or absent history of smoking and/or other known risk factors * high risk patients: history of smoking or of other known risk factors (e.g. first degree relative with lung cancer, or exposure to asbestos, radon, uranium) * if a nodule up to 8 mm is partly solid or is ground glass further follow-up is required after 24 months to exclude possible slow growing adenocarcinoma (CRISTINA) SUBSOLID NODULES Solitary pure ground-glass nodule * nodule size <6 mm - no CT follow-up required * nodule size >=6 mm - follow-up CT at 6-12 months, then every 2 years until 5 years Solitary part-solid nodule * nodule size <6 mm - no CT follow-up required * nodule size >=6 mm - follow-up CT at 3-6 months. If unchanged, and solid component remains <6 mm, then annual follow-up for 5 years Multiple subsolid nodules * nodule size <6 mm - follow-up CT at 3-6 months, consider further follow-up at 2 and 4 years if stable * nodule size >=6 mm - follow-up CT at 3-6 months, subsequent management based on the most suspicious nodule(s) ACT 112: Negative or not required by law. Electronically signed by: Michael Shah M.D. 05/07/2020 7:34 PM Dictated: 05/07/201927Transcribed: 05/07/201927 Code Status & VTE Plan Code Status Full code VTE Prophylaxis Plan VTE Prophylaxis will be ordered: Yes PG Care Time/CCT Total # of Minutes Spent Total Time Spent with Patient: Total time spent is greater than 50% in coordination of care (as documented) at patient's floor/unit and/or counseling patient: Coding Level of Care Code 32975 Initial Inpt Care Lvl 3 Diagnoses COVID-19 virus infection U07.1 Hypoxia R09.02 Vitamin B12 deficiency E53.8 Gastroesophageal reflux disease K21.9 Zhu's esophagus K22.70 Hypertension I10 Type 2 diabetes mellitus E11.9 Dyslipidemia E78.5 Obstructive sleep apnea G47.33 Peripheral neuropathy G62.9
[2020-05-07] MEDS ORDERED: GLUCOSE 40% GEL 15 GM TUBE PO PRN (23:32)
[2020-05-07] MEDS ORDERED: CETIRIZINE HCL 10 MG TABLET PO PRN (23:32)
[2020-05-07] MEDS ORDERED: DEXTROSE 50% 50 ML SYRINGE IV PRN (23:32)
[2020-05-07] MEDS ORDERED: GLUCAGON FOR INJ 1 MG VIAL SQ PRN (23:32)
[2020-05-07] MEDS ORDERED: CARBOHYDRATES FOR HYPOGLYCEMIA PO PRN (23:32)
[2020-05-07] MEDS ORDERED: ACETAMINOPHEN 325 MG TAB PO PRN (23:32)
[2020-05-07] MEDS ORDERED: ONDANSETRON INJ 2 MG/ML 2 ML VIAL IV PRN (23:32)
[2020-05-07] MEDS ORDERED: GLUCOSE 10 TABS/TUBE PO PRN (23:32)
[2020-05-08] MEDS ORDERED: REMDESIVIR 200 MG in SODIUM CHLORIDE 0.9% 210 ML IV ONE
[2020-05-08] MEDS: ALBUTEROL HFA 8 GM INHALER INH SCH ×2 (00:32→07:10)
[2020-05-08] MEDS: SODIUM CHLORIDE 0.9% 10ML FLUSH IV SCH (02:11)
[2020-05-08 02:23] LABS: Appearance Urine Clear (Clear); Bacteria Urine Automated Negative (Negative); Bilirubin Urine Negative (Negative); Blood Urine 1+ (Negative); Cast Urine Automated 0 /lpf (0-5); Color Urine Yellow; Glucose Urine UA Trace (Negative); Ketones Urine 2+ (Negative); Leukocyte Esterase Urine Negative (Negative); Nitrite Urine Negative (Negative); Protein Urine 3+ (Negative); Specific Gravity Urine > 1.045 (1.000-1.030); Urobilinogen Urine Negative (Negative)
[2020-05-08] MEDS ORDERED: ALBUTEROL HFA 8 GM INHALER INH SCH (07:00)
[2020-05-08] MEDS: MULTIVITAMIN TAB PO SCH (08:09)
[2020-05-08] MEDS: CHOLECALCIFEROL 1,000 UNITS 25 MCG TAB PO SCH (08:09)
[2020-05-08] MEDS: LOSARTAN POTASSIUM 50 MG TAB PO SCH (08:09)
[2020-05-08] MEDS: DOXAZosin MESYLATE TAB 2 MG TAB PO SCH (08:09)
[2020-05-08] MEDS: CYANOCOBALAMIN 500 MCG TABLET (VITAMIN B-12) PO SCH (08:10)
[2020-05-08] MEDS: OMEGA-3 (PURIFIED FISH OIL) 1 GM CAP PO SCH (08:10)
[2020-05-08] MEDS: PANTOprazole 40 MG TAB PO SCH (08:10)
[2020-05-08] MEDS ORDERED: ZINC SULFATE 220 MG CAPSULE PO SCH ×2 (09:00)
[2020-05-08] MEDS ORDERED: ASPIRIN 81 MG ECTAB PO SCH (09:00)
[2020-05-08] MEDS ORDERED: ENOXAPARIN INJ 60 MG/0.6 ML SYR SQ SCH (09:00)
[2020-05-08] MEDS ORDERED: dexAMETHasone 6 MG in SYRINGE 0 ML IV SCH (09:00)
[2020-05-08] MEDS ORDERED: AZITHROMYCIN 500 MG in DEXTROSE 5% 250 ML IV SCH (09:00)
[2020-05-08] MEDS: INSULIN ASPART 100 UNITS/ML 3 ML PEN SC SCH ×4 (09:00→21:00)
[2020-05-08] MEDS ORDERED: ALBUTEROL HFA 8 GM INHALER INH PRN (09:28)
[2020-05-08] MEDS: ENOXAPARIN INJ 40 MG/0.4 ML SYR SQ SCH (09:57)
--- NOTE | 2020-05-08 13:21 | Hospitalist Progress Note ---
Date of Service May 08, 2020 Assessment & Plan (1) COVID-19 virus infection: COVID-19 virus infection; however, at present, he is not on any oxygen and O2 saturation is 94%. - No indication for steroids, remdesivir. - Received convalescent plasma on 05/08/2020. - Continue Ventolin HFA 2 puffs 4 times daily, and every 2 hours as needed (2) Hypertension: BP is 125/75 today. - Continue aspirin, doxazosin, and losartan. (3) Type 2 diabetes mellitus: A1c was 6.6% on last check. - Hold metformin. - Sliding scale insulin (4) Vitamin B12 deficiency: - Continue supplement 1000 mcg every morning (5) Gastroesophageal reflux disease: - Change Nexium to pantoprazole per formulary interchange (6) Dyslipidemia: - Continue atorvastatin 20 mg daily (7) Obstructive sleep apnea: - CPAP at bedtime as needed (8) DVT prophylaxis: Lovenox 40 mg SQ daily Admission and Anticipated Discharge Date Admission Date: May 07, 2020 Subjective Doing overall well. No real shortness of breath today. Cough is acceptable. Reports no fevers/chills, chest pain, abdominal pain, nausea, or vomiting. Physical Exam Constitutional: WD/WN, vitals as above Eyes: EOM intact bilaterally; no conjunctival abnormality ENMT: external ear and nose normal, oropharynx normal Neck: trachea midline, no thyromegaly normal visual inspection Respiratory: normal respiratory effort, lungs clear to auscultation no respiratory distress Cardiovascular: RRR, no murmur, no edema Gastrointestinal (Abdomen): Inspection/Auscultation: abdomen normal to inspection; abdomen not distended Musculoskeletal: no cyanosis or clubbing, extremities motor strength 5/5 Skin: no rashes, warm and dry Neurologic: moves all extremities and awake Psychiatric: Orientation: alert, oriented to person and cooperative Results & Data Results & Data ([facility]) Vital Signs (Past 12 Hours) Vital Signs Temp Pulse Pulse Resp BP BP Pulse Ox 05/08/20 12:25 37.2 C 62 20 124/75 94 05/08/20 11:53 37 C 56 L 16 126/73 94 05/08/20 10:53 37 C 61 18 125/75 94 05/08/20 10:23 37.1 C 61 16 121/70 93 05/08/20 10:08 37.1 C 60 16 132/76 93 05/08/20 09:49 37.1 C 60 16 133/73 94 05/08/20 09:00 53 L 05/08/20 07:28 36.9 C 59 L 18 143/78 H 91 05/08/20 07:12 53 L 18 95 05/08/20 03:51 37.2 C 60 16 167/84 H 95 PG Care Time/CCT Total # of Minutes Spent Total Time Spent with Patient: Total time spent is greater than 50% in coordination of care (as documented) at patient's floor/unit and/or counseling patient: Coding Level of Care Code 96555 Subseq Hosp Care Lvl 3 Diagnoses COVID-19 virus infection U07.1 Hypertension I10 Type 2 diabetes mellitus E11.9 Vitamin B12 deficiency E53.8 Gastroesophageal reflux disease K21.9 Dyslipidemia E78.5 Obstructive sleep apnea G47.33 DVT prophylaxis Z29.9
[2020-05-08] MEDS ORDERED: REMDESIVIR 100 MG in SODIUM CHLORIDE 0.9% 230 ML IV SCH (20:00)
[2020-05-08] MEDS ORDERED: ATORVASTATIN 20 MG TAB PO SCH (21:00)
[2020-05-09] MEDS: SODIUM CHLORIDE 0.9% 10ML FLUSH IV SCH (01:40)
[2020-05-09 06:21] LABS: Estimated Average Glucose 151 mg/dl; Hemoglobin A1C 6.9 % (4.5-5.6)
--- NOTE | 2020-05-09 06:32 | Electrocardiogram Report ---
Test Reason : Blood Pressure : / mmHG Vent. Rate : 076 BPM Atrial Rate : 076 BPM P-R Int : 216 ms QRS Dur : 094 ms QT Int : 392 ms P-R-T Axes : 049 017 015 degrees QTc Int : 441 ms Sinus rhythm with 1st degree A-V block Otherwise normal ECG When compared with ECG of 27-JUN-2012 08:40, Vent. rate has increased BY 25 BPM Confirmed by Meet Calderón ([id number]) on 05/09/2020 6:32:21 AM Referred By: REFERRED SELF Confirmed By:Meet Calderón
[2020-05-09 06:49] LABS: Hematocrit (blood only) 38.4 % (42-52); Hemoglobin 13.3 g/dL (14.0-18.0); Mean Corpuscular Hemoglobin 29.8 pg (25-34); Mean Corpuscular Hgb Conc 34.6 g/dL (32-36); Mean Corpuscular Volume 86.1 fL (80-100); Mean Platelet Volume 9.3 fL (7.4-10.4); Platelet Count 172 K/uL (130-400); RDW Standard Deviation 41.1 fL (36.4-46.3); Red Blood Count 4.46 M/uL (4.7-6.1); White Blood Count 4.13 K/uL (4.8-10.8)
[2020-05-09 07:15] LABS: Albumin Level 3.1 gm/dl (3.4-5.0); BUN Creatinine Ratio 18.5 (10-20); Calcium 8.7 mg/dl (8.5-10.1); Creatinine Clr Calc Pharmacy 75.5 ml/min; Est GFR (African American) 76.5; Magnesium 1.8 mg/dl (1.8-2.4); Potassium 3.7 mmol/L (3.5-5.1)
[2020-05-09 07:18] LABS: Albumin Globulin Ratio 0.8 (0.9-2); Bilirubin,Total 0.7 mg/dl (0.2-1); Globulin 3.7 gm/dl (2.5-4.0); Phosphorus 2.1 mg/dl (2.5-4.9); Total Protein 6.8 gm/dl (6.4-8.2)
[2020-05-09] MEDS: INSULIN ASPART 100 UNITS/ML 3 ML PEN SC SCH ×2 (09:38→14:13)
[2020-05-09] MEDS: LOSARTAN POTASSIUM 50 MG TAB PO SCH (09:39)
[2020-05-09] MEDS: DOXAZosin MESYLATE TAB 2 MG TAB PO SCH (09:39)
[2020-05-09] MEDS: ENOXAPARIN INJ 40 MG/0.4 ML SYR SQ SCH (09:40)
[2020-05-09] MEDS: OMEGA-3 (PURIFIED FISH OIL) 1 GM CAP PO SCH (09:40)
[2020-05-09] MEDS: CHOLECALCIFEROL 1,000 UNITS 25 MCG TAB PO SCH (09:41)
[2020-05-09] MEDS: PANTOprazole 40 MG TAB PO SCH (09:41)
[2020-05-09] MEDS: CYANOCOBALAMIN 500 MCG TABLET (VITAMIN B-12) PO SCH (09:41)
[2020-05-09] MEDS: MULTIVITAMIN TAB PO SCH (09:41)
--- NOTE | 2020-05-09 17:11 | Discharge Summary ---
Date of Service May 09, 2020 Admission HPI Per Admitting Provider The patient is a 74-year-old male with a past medical history including colon polyps, Zhu's esophagus, vitamin B12 deficiency, seborrheic keratosis, multiple benign nevi, hypertension, GERD, diabetes mellitus type 2, dermatofibroma, powell angioma, anemia, dyslipidemia, esophageal candidiasis, obstructive sleep apnea, peripheral neuropathy and tubular adenoma of colon. Patient presents with symptoms as noted above. Work-up in the emergency department included the following abnormal laboratories: Sodium 131, glucose 135, albumin 3.3, hemoglobin 12.7, D-dimer 540 Patient vitals included a room air oxygen saturation of 89% CT angiography PE protocol was negative for PE. Did show bilateral interstitial pneumonitis pattern. COVID-19 virus testing was positive. Principal Diagnosis Covid-19 pneumonia Discharge Exam Constitutional WD/WN, vitals as above Eyes EOM intact bilaterally; no conjunctival abnormality ENMT external ear and nose normal, oropharynx normal Neck trachea midline, no thyromegaly normal visual inspection Respiratory normal respiratory effort, lungs clear to auscultation no respiratory distress Cardiovascular RRR, no murmur, no edema Gastrointestinal (Abdomen) Inspection/Auscultation: abdomen normal to inspection; abdomen not distended Musculoskeletal no cyanosis or clubbing, extremities motor strength 5/5 Skin no rashes, warm and dry Neurologic moves all extremities and awake Psychiatric Orientation: alert, oriented to person and cooperative Discharge Data Allergies Allergy/AdvReac Type Severity Reaction Status Date / Time No Known Allergies Allergy Verified 05/07/20 20:57 Consultations 05/07/20 20:13 ED Decision to Admit Stat 05/07/20 23:32 Consult Case Management - Discharge Planning Routine Ordered Studies 05/07/20 19:00 CT angio chest PE protocol Stat Hospital Course (1) COVID-19 virus infection: COVID-19 virus infection; however, at present, he is not on any oxygen and O2 saturation is 94%. - No indication for steroids, remdesivir. - Received convalescent plasma on 05/08/2020. - Continue Ventolin HFA 2 puffs 4 times daily, and every 2 hours as needed - Discharged on cough suppressant. Feeling better by discharge. (2) Hypertension: BP is 125/75 today. - Continue aspirin, doxazosin, and losartan. (3) Type 2 diabetes mellitus: A1c was 6.6% on last check. - Held metformin while inpatient. Resume on discharge. (4) Vitamin B12 deficiency: - Continue supplement 1000 mcg every morning (5) Gastroesophageal reflux disease: - Change Nexium to pantoprazole per formulary interchange (6) Dyslipidemia: - Continue atorvastatin 20 mg daily (7) Obstructive sleep apnea: - CPAP at bedtime as needed (8) DVT prophylaxis: Lovenox 40 mg SQ daily Total Time Total Time Spent Total Time Spent (In Minutes): 35 Discharge Plan Discharge Items Patient Disposition: Home - Self-Care Reason For Visit: PNEUMONIA DUE TO COVID-19 WITH HYPOXIA Discharge Diagnosis: Covid-19 Activity: Resume your previous activity Non-emergency contact: Primary Care Provider Call non-emergency contact if: you have any medication questions and your symptoms worsen Follow-up/Referrals: Dennis Frausto MD [Primary Care Provider] - 05/19/20 11:30 am (TELE HEALTH VISIT (THEY WILL CALL YOU)) Diet: Regular Addtl Attending Provider Instructions: You were admitted for Covid-19 pneumonia. Fortunately, your body seems to be in the healing stage. You did not need any oxygen while we monitored you in the hospital. This is great news! It also means many of our treatments do not have a lot of benefit because they mostly help the sickest Covid-19 patients (e.g. steroids only help people who need oxygen and actually can cause harm in people without an oxygen need). We are sending you home with cough suppressants and would like you to take it easy for at least another week. Please continue your isolation until 2 weeks after your first symptoms. If you continue to have a slight cough, as long as it is improving, you are not contagious at that point. If you have more shortness of breath, please call in to Dr. Frausto's office or return to the hospital. Pending Studies at Discharge: No Stand-Alone Forms: My [employer], Smoking Cessation Medications and DC Order Prescriptions: New codeine-guaifenesin 10-100 mg/5 mL liquid 10 ml PO Q6H PRN (Reason: cough) Qty: 237 RF: 0 benzonatate [Tessalon Perles] 100 mg capsule 100 mg PO TID PRN (Reason: cough) Qty: 20 RF: 0 Continued metformin [Glucophage XR] 500 mg tablet extended release 24 hr 1,000 mg PO BID Qty: 360 RF: 3 esomeprazole magnesium 40 mg capsule,delayed release(DR/EC) 40 mg PO QAM Qty: 90 RF: 3 doxazosin 2 mg tablet 2 mg PO QAM Qty: 90 RF: 1 losartan 100 mg tablet 100 mg PO QAM Qty: 90 RF: 3 multivitamin Tablet 1 tab PO QAM RF: 0 cetirizine [Zyrtec] 10 mg Tablet 10 mg PO DAILY PRN (Reason: Allergy Symptoms) RF: 0 cyanocobalamin (vitamin B-12) [Vitamin B-12] 1,000 mcg Tablet 1,000 mcg PO QAM RF: 0 aspirin 81 mg Tablet,Delayed Release (Dr/Ec) 81 mg PO Q2D RF: 0 pseudoephedrine HCl [Sudafed] 30 mg Tablet 30 mg PO Q6H PRN (Reason: Cold Symptoms) RF: 0 cholecalciferol (vitamin D3) [Vitamin D3] 1,000 unit Capsule 1,000 unit PO QAM RF: 0 fish,bora,flax oils-[id number] [Maple 3-6-9 Complex] 400-400-400 mg Capsule 2 cap PO QAM RF: 0 atorvastatin 20 mg tablet 20 mg PO QPM RF: 0 Discharge Orders: Discharge Order (Routine); Ordered 05/09/20 Ordered By: Sathish Garcia/Other Patient Handouts: Managing Type 2 Diabetes Admission Data Admit Date/Time: 05/07/20 22:07 Attending Provider: Sathish Hartley Admit Provider: Fitz Partida Primary Care Provider: Dennis Frausto Other Providers: Sathish Hartley Other Interventions: Discharge Summary Assessment (RN) Last Done: 05/09/20 13:46 Coding Level of Care Code D/C Day Management >30 mins Diagnoses COVID-19 virus infection U07.1 Hypertension I10 Type 2 diabetes mellitus E11.9 Vitamin B12 deficiency E53.8 Gastroesophageal reflux disease K21.9 Dyslipidemia E78.5 Obstructive sleep apnea G47.33 DVT prophylaxis Z29.9
== END 2020-05-09 15:03 | disposition home or self-care (01) ==
LOC: ED 17:21 → 2S 22:07 → INTOOBSV 22:07 → SUATTDRO 22:07 → 2S 23:00 → 2E 05-09 07:34